=== PATIENT | male | born 1960 ===

== ENCOUNTER 2023-12-30 17:48 | Emergency (ER) | payer MEDICARE, OTHER ==
[2023-12-30] MEDS: Lidocaine 1% 10 ML MDV INJECT ONE (18:57)
[2023-12-30] MEDS: Diphtheria,Pertussis(Acell),Tetanus Vaccine 0.5 ML Syringe IM ONE (19:11)
== END 2023-12-30 19:19 | disposition home or self-care (01) ==
LOC: LB.ED 17:48
DX: S60.352A Superficial foreign body of left thumb, initial encounter (principal); Z23 Encounter for immunization; W45.8XXA Other foreign body or object entering through skin, initial encounter
CPT/HCPCS: 90471; 90715; 99283; 99283-25